=== PATIENT | female | born 1985 ===

== ENCOUNTER 2016-10-27 23:19 | Emergency (ER) | payer BC, MEDICAID ==
[2016-10-27 23:26] VITALS: BP 137/80; PULSE 110; RESP 18; TEMP 98.1; O2SAT 100
[2016-10-27 23:59] LABS: BASO # 0.1 K/uL (0.0-0.2); BASO % 0.6 % (0.0-2.0); EOS # 0.4 K/uL (0.0-0.7); EOS % 2.7 % (0.0-4.0); HEMATOCRIT 37.4 % (34.0-47.0); LYMPH # 5.3 K/uL (1.0-4.3); LYMPH % 39.6 % (20.0-40.0); MEAN CORPUSCULAR HEMOGLOBIN 27.4 pg (27.0-31.0); MEAN CORPUSCULAR HGB CONC 32.2 g/dL (33.0-37.0); MEAN PLATELET VOLUME 11.2 fL (7.2-11.7); MONO # 0.9 K/uL (0.0-0.8); MONO % 6.8 % (0.0-10.0); NRBC % 0.1 % (0.0-2.0); WHITE BLOOD COUNT 13.5 K/uL (4.8-10.8)
[2016-10-28 00:06] LABS: CHLORIDE 97 mmol/L (98-107); POTASSIUM 3.7 mmol/L (3.6-5.2); SODIUM 132 mmol/L (132-148)
[2016-10-28 00:07] LABS: BILIRUBIN,TOTAL 0.5 mg/dL (0.2-1.3); GFR AFRICAN-AMERICAN > 60
[2016-10-28 00:08] LABS: ALB/GLOB RATIO 1.6 (1.0-2.1); ALKALINE PHOSPHATASE 65 U/L (38-126); ALT/SGPT 38 U/L (9-52); AST/SGOT 24 U/L (14-36); BLOOD UREA NITROGEN 14 mg/dL (7-17); CARBON DIOXIDE 23 mmol/L (22-30); GLUCOSE,RANDOM 132 mg/dL (65-105); TOTAL PROTEIN 7.4 g/dL (6.3-8.3)
[2016-10-28 00:09] LABS: CALCIUM 9.2 mg/dl (8.6-10.4)
[2016-10-28 00:34] LABS: RBC URINE 6247 /hpf (0-3); URINE BILIRUBIN NEGATIVE (NEGATIVE); URINE BLOOD 2+ (NEGATIVE); URINE COLOR Amber (YELLOW); URINE GLUCOSE (UA) 1+ mg/dL (Normal); URINE KETONE TRACE mg/dL (NEGATIVE); URINE LEUKOCYTE ESTERASE NEG Leu/uL (Negative); URINE PROTEIN 2+ mg/dL (NEGATIVE); URINE UROBILINOGEN NORMAL mg/dL (0.2-1.0)
--- NOTE | 2016-10-28 21:19 | US ---
Indication: Bleeding, Comparison: None available. Technique: Transvaginal pelvic ultrasound. Findings: Uterus measures approximately 9.2 x 5.1 x 5.6 cm. Anteverted. Cervix length measures approximately 1.9 cm. There is a single intrauterine fetus present. Gestational sac noted within the lower uterine segment/ cervix. 2 mm yolk sac. The gestational sac measures 1.5 cm and is compatible with a gestational age of 5 weeks 6 days. The crown-rump length measures 0.5 cm and is compatible with a gestational age of 6 weeks 1 day. heart motion is not detected. The right ovary measures 3.5 x 2.3 x 2.8 cm. Blood flow is demonstrated the right ovary. The left ovary measures 2.7 x 1.2 x 2.6 cm. Blood flow not demonstrated to the left ovary, believed secondary to technically difficult location of the ovary. Small pelvic free fluid. Impression: Single intrauterine with estimated gestational age 6 weeks 0 days. Gestational sac noted within the lower uterine segment/ cervix. heart rate not detected at this time, possibly due to early stage of gestation. Recommend clinical correlation including close [employer] follow-up, serial beta hCGs, and repeat imaging as indicated. Additional findings as above. Preliminary impression was provided by virtual radiologic.
--- NOTE | 2016-10-29 02:36 | C.PDOC ---
History Of Present Illness Patient is a 31 y/o female, 12 weeks , presents to the ED for evaluation of vaginal bleeding. Pt notes that vaginal bleeding started this morning as spotting, and became clots by the evening which prompted her to visit ED. Notes crampy abdominal pain. Denies taking any pain meds at home. Pt states her 1st appointment with OBGYN is next week, no care up to now. Otherwise, denies any n/v/d, urinary symptoms, fever, chills, or any other associated symptoms at this time. Time Seen by Provider: 10/28/16 00:38 Chief Complaint (Nursing): Female Genitourinary History Per: Patient History/Exam Limitations: no limitations Onset/Duration Of Symptoms: Hrs Current Symptoms Are (Timing): Still Present Past Medical History Vital Signs: Last Vital Signs Temp 98.1 F 10/27/16 23:24 Pulse 110 H 10/27/16 23:24 Resp 18 10/27/16 23:24 BP 137/80 10/27/16 23:24 Pulse Ox 100 10/27/16 23:24 Family History: States: Unknown Family Hx - Social History Hx Alcohol Use: Yes Hx Substance Use: No - Immunization History Hx Tetanus Toxoid Vaccination: No Hx Influenza Vaccination: No Hx Pneumococcal Vaccination: No Review Of Systems Except As Marked, All Systems Reviewed And Found Negative. Genitourinary: Positive for: Vaginal Bleeding Physical Exam - Physical Exam Appears: Well, Non-toxic, No Acute Distress Skin: Normal Color, Warm, Dry Head: Atraumatic, Normacephalic Eye(s): bilateral: Normal Inspection, EOMI Nose: Normal Neck: Normal, Normal ROM, Supple Chest: Symmetrical Cardiovascular: Rhythm Regular Respiratory: Normal Breath Sounds Gastrointestinal/Abdominal: Soft, Tenderness (suprapubic tenderness) Back: Normal Inspection Extremity: Normal ROM Neurological/Psych: Oriented x3, Normal Speech ED Course And Treatment - Laboratory Results Result Diagrams: 10/27/16 23:49 10/27/16 23:49 O2 Sat by Pulse Oximetry: 100 - CT Scan/US Us Other Rad Studies (CT/US): Read By Radiologist, Radiology Report Reviewed CT/US Interpretation: History: 31 years old, female; Signs and symptoms; Lmp or gestational age (in weeks): 08/07/2016;. Antepartum complications; Bleeding; . Gender: female. Age: 31 years. Format: 6413. Contrast Amount: -1. Contrast Type: Options: b ui h n cb. Exam: US TRANSVAGINAL prelim. Comparison: Uterus measures 9.2 x 5.2 x 5.6 CM. There is a single gestational sac with a mean sac diameter. corresponding to 5 weeks 6 days. Yolk sac is visualized. pole with crown-rump length. corresponding to menstrual age 6 weeks one day. Small amount of fluid in cul-de-sac. Ovaries are unremarkable. Cardiac activity cannot be demonstrated pertaining to the pole. The. gestational sac is at the level of the lower uterine segment/ cervical junction. At this point the. does not appear to be viable, however recommend clinical correlation, serial beta-hCGs,. and followup imaging. Impression: Single intrauterine at approximately 6 weeks 1 day menstrual age with. questionable viability at this point. See above. Thank you for allowing us to participate in the care of your patient. Dictated and Authenticated by: Chaz Escobar MD Progress Note: Pt refused pain medication. Pt was given results of US and instructed to follow up with OB /ER in 2 days for repeat evaluation. 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 Disposition - Disposition Disposition: HOME/ ROUTINE Disposition Time: 14:00 Condition: STABLE - Clinical Impression Clinical Impression: Threatened miscarriage in early
== END 2016-10-28 03:30 | disposition home or self-care (01) ==
LOC: C.ER 23:19
DX: O20.0 Threatened abortion (principal); Z3A.12 12 weeks gestation of pregnancy

== ENCOUNTER 2017-09-30 17:54 | Inpatient (IN) | payer OTHER ==
[2017-09-30 18:14] VITALS: BMI 45.1
[2017-09-30] MEDS ORDERED: Lactated Ringer's 1,000 ML IV SCH (19:45)
[2017-09-30 20:41] LABS: BASO # 0.1 K/uL (0.0-0.2); BASO % 0.5 % (0.0-2.0); EOS # 0.1 K/uL (0.0-0.7); EOS % 0.9 % (0.0-4.0); HEMOGLOBIN 11.9 g/dL (11.0-16.0); LYMPH # 2.7 K/uL (1.0-4.3); LYMPH % 24.2 % (20.0-40.0); MEAN CELL VOLUME 83.4 fL (81.0-99.0); MEAN CORPUSCULAR HEMOGLOBIN 27.8 pg (27.0-31.0); MEAN CORPUSCULAR HGB CONC 33.3 g/dL (33.0-37.0); MEAN PLATELET VOLUME 11.1 fL (7.2-11.7); MONO # 0.7 K/uL (0.0-0.8); MONO % 6.6 % (0.0-10.0); NEUT # 7.6 K/uL (1.8-7.0); NEUT % 67.8 % (50.0-75.0); NRBC % 0.1 % (0.0-2.0); RBC 4.28 Mil/uL (3.80-5.20); RED CELL DISTRIBUTION WIDTH 13.1 % (11.5-14.5); WHITE BLOOD COUNT 11.2 K/uL (4.8-10.8)
[2017-09-30 20:58] LABS: ALB/GLOB RATIO 0.9 (1.0-2.1); ALBUMIN 3.4 g/dL (3.5-5.0); ALT/SGPT 20 U/L (9-52); AST/SGOT 24 U/L (14-36); BLOOD UREA NITROGEN 9 mg/dL (7-17); CALCIUM 9.7 mg/dl (8.6-10.4); GFR AFRICAN-AMERICAN > 60; GFR NON-AFRICAN AMERICAN > 60
[2017-09-30 21:10] LABS: SQUAMOUS EPITHIAL 2 /hpf (0-5); URINE BACTERIA RARE (<OCC); URINE BILIRUBIN NEGATIVE (NEGATIVE); URINE BLOOD NEGATIVE (NEGATIVE); URINE CLARITY Hazy (Clear); URINE COLOR Yellow (YELLOW); URINE GLUCOSE (UA) NORMAL (Normal); URINE LEUKOCYTE ESTERASE NEG Leu/uL (Negative); URINE PROTEIN NEGATIVE (NEGATIVE); URINE UROBILINOGEN NORMAL mg/dL (0.2-1.0)
[2017-09-30 21:12] LABS: URINE AMORPHOUS SEDIMENT MODERATE /ul (<OCC)
[2017-09-30 22:34] LABS: HEPATITIS B SURFACE AG Negative (NEGATIVE)
--- NOTE | 2017-10-01 07:06 | OBPN ---
Datetime: 10/01/2017 07:04 IP Progress Impression: Normal progression of labor IP Procedures: Sterile Vag Exam FHR - Baseline A Provider: 130 IP Progress Note Comment: pt was examinedat bged side ve 3/70/-2 cervidil removed start pitocin anticipaye Vital Signs Provider: Reviewed; Within Normal Limits NICHD Accel Fetus A IP Provider: 15X15 FHR Category Provider Fetus A: Category I NICHD Variability Prov Fetus A: Moderate 6-25bpm Dilatation, Provider: 3 Effacement, Provider: 70 Station, Provider: -2 Datetime: 09/30/2017 19:49 Presentation-Admit: Vertex Vital Signs Provider Details: 120-140/60-80 NICHD Decel Fetus A IP Provider: None
[2017-10-01] MEDS ORDERED: Oxytocin 30 UNIT 30 UNITS/500 ML BAG IV PRN (07:08)
[2017-10-01] MEDS ORDERED: Dextrose 5%/Lactated Ringer's 1,000 ML IV SCH (07:15)
[2017-10-01] MEDS ORDERED: Oxytocin 30 UNIT 30 UNITS/500 ML BAG IV ONE (07:21)
[2017-10-01] MEDS ORDERED: Bupivacaine HCl 0.25% PF (30 ml) Inj ONE (08:00)
[2017-10-01] MEDS ORDERED: Bupivacaine HCl/FentaNYL Cit 100 ML EPI ONE ×2 (08:40→14:35)
--- NOTE | 2017-10-01 13:15 | OBPN ---
Datetime: 10/01/2017 13:12 IP Progress Impression: Normal progression of labor IP Procedures: Sterile Vag Exam Contraction Comments Provider: q1-4 FHR - Baseline A Provider: 120 IP Progress Note Comment: pt was seen at bed side ve /-2 cont pitocn nticipate nnsvd Vital Signs Provider: Reviewed; Within Normal Limits NICHD Accel Fetus A IP Provider: 15X15 FHR Category Provider Fetus A: Category I NICHD Variability Prov Fetus A: Moderate 6-25bpm Dilatation, Provider: 7 Effacement, Provider: 90 Station, Provider: -2
[2017-10-01] MEDS ORDERED: Benzocaine/Menthol 20%-0.5% Topical Spray (60 ml) TOP PRN (15:27)
[2017-10-01] MEDS ORDERED: Oxycodone/Acetaminophen 5/325 mg Tab PO PRN ×2 (15:27→15:37)
--- NOTE | 2017-10-01 15:27 | OBDS ---
MATERNAL INFORMATION Other Maternal Complications: GDMA DIET CONTROLLED H/O HPV MORBID OBESITY Provider Comments: baby deliverd i joanna. endomewtrium clean cord arround body no com LABOR SUMMARY EDC: 10/01/2017 00:00 No. Babies in Womb: 1 LABOR INFORMATION Reason for Induction: Other Reason for Induction Other: GDMA Cervical Ripening Agents: Cervidil Oxytocin: Augmentation Group B Beta Strep: Negative MEMBRANES Membranes Rupture Method: Spontaneous Rupture of Membranes: 10/01/2017 10:50 Length of Rupture (hrs): 4.37 Amniotic Fluid Color: Clear Amniotic Fluid Amount: Moderate Amniotic Fluid Odor: None STAGES OF LABOR Stage 3 hrs: 0 Stage 3 min: 2 VAGINAL DELIVERY Episiotomy: None Laceration Extension: First Degree Laceration Type: Perineal BABY A INFORMATION Infant Delivery Date/Time: 10/01/2017 15:12 Method of Delivery: Vaginal Born in Route : No : N/A Forceps: N/A Vacuum Extraction: N/A Shoulder Dystocia : No SHOULDER DYSTOCIA BABY A Infant Delivery Date/Time: 10/01/2017 15:12 PRESENTATION/POSITION BABY A Presentation: Cephalic Cephalic Presentation: Vertex Vertex Position: Left Occipital Anterior Breech Presentation: N/A PLACENTA INFORMATION BABY A Placenta Delivery Time : 10/01/2017 15:14 Placenta Method of Delivery: Expressed Placenta Status: Delivered SCORES BABY A Heart Rate 1 min: >100 bpm Resp Effort 1 min: Good Cry Reflex Irritability 1 min: Cough or Sneeze or Pulls Away Muscle Tone 1 min: Active Motion Color 1 min: Body [place], Extremities Blue Resuscitation Effort 1 min: Tactile Stimulation SCORE 1 MIN: 9 Heart Rate 5 min: >100 bpm Resp Effort 5 min: Good Cry Reflex Irritability 5 min: Cough or Sneeze or Pulls Away Muscle Tone 5 min: Active Motion Color 5 min: Body [place], Extremities Blue Resuscitation Effort 5 min: N/A SCORE 5 MIN: 9 INFANT INFORMATION BABY A Gestational Age at Delivery: 40.0 Gestational Status: Term Outcome : Liveborn Infant Condition : Stable Sex: Female IDENTIFICATION/MEDS BABY A ID Band Number: [id number] ID Band Location: Left Leg; Left Arm Sensor Applied: Yes Sensor Number: [id number] Sensor Location : Cord Clamp Vitamin K Given : Not Given Erythromycin Given: Not Given WEIGHT/LENGTH BABY A Birthweight (gms): 2995 Weight (lb): 6 Weight (oz): 10 Length Inches: 19.50 Length cms: 49.5 CORD INFORMATION BABY A Nuchal Cord : N/A Suction: Mouth; Nose
[2017-10-02 08:14] VITALS: RESP 18
[2017-10-02 08:30] LABS: HEMOGLOBIN 10.9 g/dL (11.0-16.0); MEAN CORPUSCULAR HEMOGLOBIN 28.2 pg (27.0-31.0); MEAN CORPUSCULAR HGB CONC 33.6 g/dL (33.0-37.0); MEAN PLATELET VOLUME 11.1 fL (7.2-11.7); RBC 3.88 Mil/uL (3.80-5.20); RED CELL DISTRIBUTION WIDTH 13.2 % (11.5-14.5); WHITE BLOOD COUNT 12.6 K/uL (4.8-10.8)
--- NOTE | 2017-10-02 09:04 | OBPPN ---
Datetime: 10/02/2017 09:02 PP Pain Prov: Within normal limits PP Nausea Prov: Denies PP Flatus Prov: Yes PP Abdomen/Uterus Prov: Normal PP Lochia Prov: Normal PP Extremities Prov: Normal PP Impression Prov: Normal progression PP Plan Prov: Continue present management PP Progress Note Prov: pt was seen at bed side, pain under control,no n/v, tolrating deit , voiding, min lochia ppd#1 s/p cont pp care cont pain management encourage ambulation Vital Signs Provider PP: Reviewed; Within Normal Limits
[2017-10-03] MEDS ORDERED: Measles, Mumps, and Rubella 0.5 ML VIAL SC ONE (10:00)
--- NOTE | 2017-10-03 10:34 | OBPPN ---
Datetime: 10/03/2017 07:57 PP Pain Prov: Within normal limits PP Breasts Prov: Not Done PP Heart Prov: Normal PP Lungs Prov: Normal PP Abdomen/Uterus Prov: Normal PP Lochia Prov: Not Done PP Vulva/Perineum Prov: Not Done PP CVA Tenderness Prov: Not Done PP Extremities Prov: Normal PP Progress Prov: Normal PP Impression Prov: Normal progression PP Plan Prov: Continue present management PP Progress Note Prov: Patient was seen and examined at bedside in no acute distress. Patient report s feeling well, having mild pain s/p delivery. She says she is both passing gas and having normal bow el movements. She is tolerating her diet and ambulating without difficulty. The patient denies chest pain, dyspnea, leg pain, nausea, vomiting, fevers. VSS PE: see above Plan/Assessment: - Continue pain management with motrin as needed. - Encouraged ambulation. agree with above pt seen adn examien ayana presentid pt reprots pain contorll, eambitng, voidng, pasisng flauts, toleraign reguar diet, breats feeding dnie sany feeling of sadness or drpession VSS PE above A/P s/p PPD #2 dc home -rto 6 wekes -precautin givne
--- NOTE | 2017-10-03 10:37 | OBDCSUM ---
Datetime: 10/03/2017 08:01 Discharged to, Provider: Home Follow up at, Provider: [facility] Disch Instr Activity: Normal activity Disch Instr Diet: Regular Discharge Instructions, Provider: Routine instructions given Discharge Diagnosis, Provider: Term Delivered Discharge Time: 10/03/2017 10:24 Follow up in weeks, Provider: 6 weeks Disch Referrals: None Disch Activity Restrictions: No sexual activity; Nothing in vagina - [place], tampons, douche Discharge Comment, Provider: Patient was seen and examined at bedside in no acute distress. Patient reports feeling well, having mild pain s/p delivery. She says she is both passing gas and having norm al bowel movements. She is tolerating her diet and ambulating without difficulty. The patient denies chest pain, dyspnea, leg pain, nausea, vomiting, fevers. Discharge instructions: Patient is to follow up with her OB in 6 weeks for visit. Please make appointment with baby's drier within 1 week. Pelvic rest x6 weeks- no sex, no tampons, no douching. Please continue taking the following medications: Continue Motrin 600mg PO every 6 hours as needed for pain. Continue Colace 100mg PO twice a day for constipation. If having fevers, heavy vaginal bleeding, severe abdominal pain, return to the ER. Contraception after Delivery: Not Planning to Use
--- NOTE | 2017-10-03 11:16 | OBHP ---
Datetime: 09/30/2017 19:49 IP Adm Impression: Term, intrauterine IP Admit Plan: Admit to unit; Initiate labor induction protocol Admit Comment, IP Provider: 31 yo g1 edc 10/01 by lmp _ 11wk us presents for induction. pnc sig for G DMA1 well controlled. 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: LGSIL HR HPV ONpap i: 39.6wks induction gdma1 elev bp p: cmp, cbc, ldh, ua rubella titer , hepBsag rout labs for cervidel d/w pt Pelvic Type - PN: Adequate Extremities - PN: Normal Abdomen - PN: Normal Back - PN: Normal Lungs - PN: Normal Neurologic - PN: Normal HEENT - PN: Normal General - PN: Normal Presentation-Admit: Vertex FHR - Baseline A Provider: 140 EGA AdmitDate IP: 39.6 Vital Signs Provider: Reviewed Vital Signs Provider Details: 120-140/60-80 IP Chief Complaint: Scheduled induction of labor NICHD Variability Prov Fetus A: Moderate 6-25bpm NICHD Accel Fetus A IP Provider: 15X15 FHR Category Provider Fetus A: Category I NICHD Decel Fetus A IP Provider: None Genitourinary Exam: Normal Dr Signature: frances
[2017-10-03 20:10] VITALS: BP 131/63; PULSE 88; TEMP 98.8; O2SAT 98
== END 2017-10-03 13:30 | disposition home or self-care (01) | DRG 372 ==
LOC: C.EROB 17:54 → C.4D 19:37 → C.4M 10-01 17:24
PROVIDERS: ADMIT Obstetrics & Gynecology; ATTEND Obstetrics & Gynecology
PROC: 10E0XZZ Delivery of Products of Conception, External Approach (ICD-10-PCS; principal; 2017-10-01)
PROC: 3E0P7VZ Introduction of Hormone into Female Reproductive, Via Natural or Artificial Opening (ICD-10-PCS; 2017-10-01)
PROC: 0HQ9XZZ Repair Perineum Skin, External Approach (ICD-10-PCS; 2017-10-01)
DX: O24.420 Gestational diabetes mellitus in childbirth, diet controlled (principal); O99.214 Obesity complicating childbirth; E66.01 Morbid (severe) obesity due to excess calories; Z68.42 Body mass index [BMI] 45.0-49.9, adult; Z3A.39 39 weeks gestation of pregnancy; Z37.0 Single live birth; O75.89 Other specified complications of labor and delivery; Z86.19 Personal history of other infectious and parasitic diseases; O70.0 First degree perineal laceration during delivery